=== PATIENT | male | born 1955 | race Asian ===

== ENCOUNTER 2021-01-25 22:43 | Emergency (ER) | payer MEDICAID, OTHER ==
[~2021-01-25] VITALS: Ht 182.9 cm; Wt 90.9 kg
[~2021-01-25 22:43] MED LIST: AMLO-258 PO; HYDR25TA2 PO
[2021-01-25] MEDS ORDERED: FLUORESCEIN SODIUM 1 MG STRIP ONE (23:45)
[2021-01-26] VITALS: BP 148/88
[2021-01-26] MEDS ORDERED: ERYTHROMYCIN 0.5% 3.5 GM TUBE OPHTHALMIC OINTMENT OU ONE
[2021-01-26] MEDS ORDERED: HYPROMELLOSE 0.5% 15 ML OPHTHALMIC SOLUTION OU ONE
== END 2021-01-26 00:25 | disposition home or self-care (01) ==
LOC: EMS 22:43
DX: H10.9 Unspecified conjunctivitis (principal)
CPT/HCPCS: 99283

== ENCOUNTER 2021-08-26 12:51 | Emergency (ER) | payer OTHER ==
[~2021-08-26] VITALS: Ht 177.8 cm; Wt 86.4 kg
[2021-08-26 13:25] VITALS: BP 185/115
[2021-08-26 13:25] LABS: BASOPHILS % (AUTO) 0.5 % (0.0-2.0); EOSINOPHILS % (AUTO) 0.2 % (1.0-6.0); HEMATOCRIT 49.4 % (41-53); HEMOGLOBIN 16.3 g/dL (13.5-17.5); LYMPHOCYTES # (AUTO) 0.3 K/uL (1.0-4.8); LYMPHOCYTES % (AUTO) 4.6 % (22.0-44.0); MEAN CORPUSCULAR HEMOGLOBIN 30.4 pg (26.0-34.0); MEAN CORPUSCULAR HGB CONC 32.9 G/dL (31.0-37.0); MEAN CORPUSCULAR VOLUME 92 fL (80-100); MONOCYTES # (AUTO) 0.7 K/uL (0.1-1.0); MONOCYTES % (AUTO) 10.9 % (2.0-9.0); NEUTROPHILS # (AUTO) 5.6 K/uL (1.8-7.7); NEUTROPHILS % (AUTO) 83.8 % (40.0-70.0); PLATELET COUNT (AUTO) 208 K/uL (150-450); RED BLOOD CELL COUNT(AUTO) 5.35 MIL/uL (4.50-5.90); RED CELL DISTRIBUTION WIDTH 13.1 % (11.5-14.5)
[2021-08-26] MEDS: ACETAMINOPHEN 500 MG TABLET PO ONE (13:25)
[2021-08-26] MEDS: ONDANSETRON HCL 4 MG TABLET PO ONE (13:25)
[2021-08-26] MEDS: SODIUM CHLORIDE 0.9% 1,000 ML IV ONE (13:25)
[2021-08-26 13:34] LABS: CALCIUM, TOTAL 9.2 mg/dL (8.8-10.5); CREATININE 1.36 mg/dL (0.60-1.30); POTASSIUM 3.8 mmol/L (3.5-5.1)
[2021-08-26 13:40] LABS: BILIRUBIN,TOTAL 0.5 mg/dL (0.1-1.0); TOTAL PROTEIN, SERUM 8.6 g/dL (6.4-8.2)
[2021-08-26 13:44] LABS: COVID AG,FIA SOURCE NASOPHARYNGEAL
[2021-08-26 14:14] LABS: INFLUENZA TYPE A NEGATIVE FOR TYPE A (NEGATIVE); INFLUENZA TYPE B NEGATIVE FOR TYPE B (NEGATIVE)
== END 2021-08-26 14:52 | disposition home or self-care (01) ==
LOC: EMS 12:52
DX: U07.1 COVID-19 (principal); E11.9 Type 2 diabetes mellitus without complications; I10 Essential (primary) hypertension; F17.210 Nicotine dependence, cigarettes, uncomplicated
CPT/HCPCS: 36415; 71045; 80053; 83690; 84484; 85025; 87426; 87804; 96360; 99284; J7030; Q0162; U0003